=== PATIENT | female | born 1935 | race Caucasian/White ===

== ENCOUNTER 2024-01-31 13:47 | Emergency (ER) | payer OTHER, SELFPAY ==
--- NOTE | ~2024-01-31 | XR_ITS ---
XR chest 2V Ordering provider: Yuki Nunes NP History: 89 years Female with . cough . Comparison: None. FINDINGS: MEDIASTINUM: The cardiac silhouette is slightly enlarged. Postoperative changes in the mediastinum. Congestive sukhwinder. LUNGS: No infiltrates, effusions or pneumothorax. Emphysematous changes of the lungs. Opacity in the right midzone which may be a nodule. Three-month f ollow-up or CT is advised. Interstitial changes are seen bilaterally which may indicate pneumonitis. OTHER: No free air under the diaphragm. IMPRESSION: No acute cardiopulmonary pathology. Possible nodule in the right midzone. Three-month follow-up or CT is advised. Reviewed, dictated and finalized at location A.
[2024-01-31 14:08] VITALS: BP 139/78; PULSE 115; RESP 20; TEMP 36.8; O2SAT 96
--- NOTE | 2024-01-31 14:32 | ED.URI ---
HPI - URI/Sore Throat General Chief Complaint: Upper Respiratory Infection Stated Complaint: cough/ sore throat/ bilateral ear Pain Time Seen by Provider: 01/31/24 14:22 Source: patient, RN notes reviewed and old records reviewed Mode of arrival: ambulatory Limitations: no limitations History of Present Illness HPI Narrative: 89 year old female presents per wheelchair accompanied by caregiver with complaints of 1 week duration of cough, bilateral ear pain and sore throat. Patient states that she has been taking Tessalon Perles and cough syrup and using inhaler as prescribed for her cough without resolution. Patient has long history of cardiac disease, COPD, and CHF with no acute respiratory distress but cough is frequent and patient is frail and on daily blood thinners.Patient reports that she called her doctors office and was told to go to urgent care. MD elicited complaint: cough, sore throat and other (ear pain) Pertinent past history: other (cardiac history) Onset (ago): week(s) (1) Severity: moderate Able to tolerate fluids by mouth: Yes Treatments prior to arrival: other (tessalon perles and cough syrup, inhaler as ordered) Related Data Home Medications Medication Instructions Recorded Confirmed alprazolam 0.25 mg tablet 0.25 mg PO PRN PRN Anxiety 01/31/24 01/31/24 apixaban 2.5 mg tablet (Eliquis) 2.5 mg PO DAILY 01/31/24 01/31/24 carvedilol 3.125 mg tablet 3.125 mg PO DAILY 01/31/24 01/31/24 ergocalciferol (vitamin D2) 1,250 1,250 mcg PO DAILY 01/31/24 01/31/24 mcg (50,000 unit) capsule fluticasone 250 mcg-salmeterol 50 2 inh inhalation DAILY 01/31/24 01/31/24 mcg/dose blistr powdr for inhalation levothyroxine 50 mcg tablet 50 mcg PO DAILY 01/31/24 01/31/24 pravastatin 40 mg tablet 40 mg PO DAILY 01/31/24 01/31/24 sacubitril 24 mg-valsartan 26 mg 1 tablet PO DAILY 01/31/24 01/31/24 tablet (Entresto) tramadol 50 mg tablet 50 mg PO DAILY 01/31/24 01/31/24 Allergies Allergy/AdvReac Type Severity Reaction Status Date / Time ciprofloxacin Allergy Severe HIVES Verified 01/31/24 14:23 hydrocodone Allergy Severe NAUSEA Verified 01/31/24 14:23 iodine Allergy Severe HIVES Verified 01/31/24 14:23 meloxicam Allergy Severe SOB Verified 01/31/24 14:23 Sulfa (Sulfonamide Allergy Severe HIVES Verified 01/31/24 14:23 Antibiotics) Review of Systems Review of Systems: CONSTITUTIONAL: Reports malaise, no chills, sweats, or known fever. EYES: Denies visual changes, redness, or discharge. ENT: Reports rhinorrhea, congestion, sinus pain, otalgia and sore throat. CARDIOVASCULAR: Denies chest pain, palpitations, or edema. RESPIRATORY: Reports cough.? Denies dyspnea. GASTROINTESTINAL: Denies abdominal pain, nausea, vomiting, diarrhea SKIN: Denies rash or itching. MUSCULOSKELETAL: Denies myalgia. NEUROLOGIC: Denies headache. All systems reviewed & are unremarkable except as noted in HPI and below PMFSH Past Medical History Medical History Anxiety CAD (coronary artery disease) CHF (congestive heart failure), NYHA class III COPD (chronic obstructive pulmonary disease) Hypertension Hypothyroidism Myocardial infarction x2 Pneumonia Surgical History Surgical History H/O angioplasty H/O aortic valve replacement with aneurysm repair also H/O: hysterectomy History of total right knee replacement (TKR) Hx of inguinal hernia repair Social History Social History Smoking status: Former smoker Tobacco type: cigarettes Additional smoking assessment comments: Quit 1994 smoked 40 years Alcohol intake: current Alcohol use details: rare Substance use type: does not use Gender identity (if verbalized by the patient): Female Comments At time of signature, agree with nursing past medical, surgical, social and family history. There i
[2024-01-31 14:54] LABS: EDINFLUASCREEN Negative (Negative); EDINFLUBSCREEN Negative (Negative)
== END 2024-01-31 15:30 | disposition short-term general hospital (02) ==
PROVIDERS: Emergency Provider Registered Nurse
DX: J98.4 Other disorders of lung (principal); R05.1 Acute cough; I50.9 Heart failure, unspecified; Z20.822 Contact with and (suspected) exposure to COVID-19; Z87.891 Personal history of nicotine dependence; I11.0 Hypertensive heart disease with heart failure; I25.10 Atherosclerotic heart disease of native coronary artery without angina pectoris; J44.9 Chronic obstructive pulmonary disease, unspecified; E03.9 Hypothyroidism, unspecified; I25.2 Old myocardial infarction; F41.9 Anxiety disorder, unspecified; Z96.651 Presence of right artificial knee joint; Z95.2 Presence of prosthetic heart valve; Z98.61 Coronary angioplasty status
CPT/HCPCS: 71046; 87635; 87804; 99213; G0463